=== PATIENT | female | born 1960 | race Caucasian/White ===

== ENCOUNTER 2018-03-15 10:04 | Outpatient (RCR) | payer BC ==
[~2018-03-15] VITALS: Ht 165.1 cm; Wt 80.0 kg
[2018-03-15] VITALS (7 sets, daily range): BP systolic 129–1149; BP diastolic 68–83; PULSE 72–87; TEMP 97.4–97.6
[~2018-03-15 10:04] MED LIST: CALTRATE-600 W600 MG PO; D3-55000 IU; MAGNESIUM250 M1 PO; PREMARIN0.625 MG PO; RITE AID BIO2500 MCG; URSO250 MG PO; XANAX 0.5MG0.5 MG PO
[2018-03-15 15:22] LABS: HEMATOCRIT 25.1 % (37.0-47.0); HEMOGLOBIN 8.3 g/dl (12.5-16.0)
[2018-03-15 16:04] LABS: HEMATOCRIT 25.2 % (37.0-47.0); HEMOGLOBIN 8.4 g/dl (12.5-16.0)
== END 2018-03-15 16:00 | disposition home or self-care (01) ==
LOC: MEDICAL 10:47 → EUO 16:00
PROVIDERS: Family Medicine
DX: C67.7 Malignant neoplasm of urachus (principal); D63.0 Anemia in neoplastic disease; Z92.21 Personal history of antineoplastic chemotherapy; Z45.2 Encounter for adjustment and management of vascular access device; Z95.828 Presence of other vascular implants and grafts
CPT/HCPCS: OP; J1644; J7050; P9016

== ENCOUNTER 2018-05-07 10:00 | Outpatient (RCR) | payer BC ==
[2018-04-08] VITALS (9 sets, daily range): BP systolic 138–154; BP diastolic 77–95; PULSE 68–81; TEMP 97.3–98.3
[2018-04-08 15:28] LABS: MEAN CELL VOLUME 95 fl (80.0-100.0); MEAN CORPUSCULAR HGB CONC 35 g/dl (33.0-37.0); PLATELET COUNT 52 K/mm3 (130-400); RED BLOOD COUNT 2.36 M/mm3 (4.10-5.30); REDCELL DISTRIBUTION WIDTH-CV 16.8 % (11.5-14.5)
[2018-04-08 15:31] LABS: ALBUMIN 3.1 gm/dL (3.5-5.0); BILIRUBIN,TOTAL 0.9 mg/dL (0.0-1.0); CALCIUM 8.6 mg/dL (8.4-10.2); CREATININE, serum 1.14 mg/dL (0.52-1.25); POTASSIUM 4.3 mmol/L (3.4-5.0); TOTAL PROTEIN 6.3 gm/dL (6.4-8.2)
[2018-04-08 15:36] LABS: HEMATOCRIT 22.5 % (37.0-47.0); HEMOGLOBIN 7.9 g/dl (12.5-16.0); MEAN CORPUSCULAR HEMOGLOBIN 33 pg (27.0-31.0)
[~2018-05-07] VITALS: Ht 165.1 cm; Wt 76.9 kg
[2018-05-07] VITALS (7 sets, daily range): BP systolic 151–164; BP diastolic 77–86; PULSE 68–86; TEMP 97.6–98.1
[~2018-05-07 10:00] MED LIST changes: +D3-5050000 IU PO; -D3-55000 IU; +MICARDIS20 MG PO; +TAGAMET400 MG PO; +XELODA150 MG PO
[2018-06-05] MEDS ORDERED: NORCO 325 MG-51 TAB PO (15:11)
== END 2018-06-05 10:25 | disposition still patient (30) ==
LOC: EUO 10:00
PROVIDERS: Family Medicine
DX: C67.7 Malignant neoplasm of urachus (principal); C78.6 Secondary malignant neoplasm of retroperitoneum and peritoneum; D64.81 Anemia due to antineoplastic chemotherapy
CPT/HCPCS: J1644; J7050; P9016

== ENCOUNTER 2018-06-05 12:29 | Outpatient (RCR) | payer BC ==
[2018-06-05] VITALS (10 sets, daily range): BP systolic 152–196; BP diastolic 90–101; PULSE 63–77; TEMP 97.6–98.5
[2018-06-05] MEDS ORDERED: NORCO 325 MG-51 TAB PO (15:11)
== END 2018-06-05 19:25 ==
LOC: EUO 12:29
DX: C67.7 Malignant neoplasm of urachus (principal); C78.6 Secondary malignant neoplasm of retroperitoneum and peritoneum; D64.81 Anemia due to antineoplastic chemotherapy
CPT/HCPCS: J1644; J7050; P9016

== ENCOUNTER → 2018-06-10 | Outpatient (CLI) | payer BC ==
[~2018-06-10] MED LIST changes: +NORCO 325 MG-51 TAB PO
== END ==
LOC: COL.VAS 12:03
DX: I34.0 Nonrheumatic mitral (valve) insufficiency (principal)

== ENCOUNTER 2018-06-23 08:06 | Outpatient (RCR) | payer BC ==
[2018-06-23] VITALS (10 sets, daily range): BP systolic 136–169; BP diastolic 80–99; PULSE 68–88; TEMP 96.7–98
[~2018-06-23] VITALS: Ht 165.1 cm; Wt 75.1 kg
[2018-06-23] MEDS ORDERED: blood pressure PO (08:45)
== END 2018-06-23 14:05 | disposition home or self-care (01) ==
LOC: EUO 08:06
DX: C67.7 Malignant neoplasm of urachus (principal); C78.6 Secondary malignant neoplasm of retroperitoneum and peritoneum; D64.81 Anemia due to antineoplastic chemotherapy
CPT/HCPCS: J1644; J7050; P9016

== ENCOUNTER → 2018-07-17 | Outpatient (CLI) | payer BC ==
[~2018-07-17] MED LIST changes: +blood pressure PO
== END ==
LOC: COL.RAD 10:11
DX: C78.6 Secondary malignant neoplasm of retroperitoneum and peritoneum (principal); C79.51 Secondary malignant neoplasm of bone; M47.816 Spondylosis without myelopathy or radiculopathy, lumbar region
CPT/HCPCS: A9585

== ENCOUNTER 2018-07-22 17:42 | Observation (INO) | payer BC ==
[~2018-07-22] VITALS: Ht 167.6 cm; Wt 61.3 kg
[2018-07-22 17:54] VITALS: BP 136/75; PULSE 109; TEMP 98
[2018-07-22] MEDS ORDERED: TYLENOL 500MG500 MG PO (19:10)
[2018-07-22] MEDS ORDERED: COMPAZINE 110 MG/TAB PO (19:11)
[2018-07-22] MEDS ORDERED: NORVASC 5MG5 MG/TAB PO (19:14)
[2018-07-22] MEDS ORDERED: MICARDIS40 MG PO (19:15)
[2018-07-22] MEDS ORDERED: OXYCODONE H5 MG/5 ML PO (19:16)
[2018-07-22 21:09] VITALS: BP 136/84; PULSE 106; TEMP 98.9
--- NOTE | 2018-07-22 21:15 | NUR ---
Shift assessment complete. States, 4/10 pain in left knee, with limited ROM (not new problem per pt). Prn tylenol given. Patient c/o N & V, prn antiemetic given per pt request. Port-a-cath in right chest accessed with 19g, 1in power needle, using sterile technique. Biopatch placed under dressing, needle secured with steri-strips/gauze, and covered with an occlusive dressing. Blood return noted, labs drawn per order, flushed per protocol, and infusing NS. Patient tolerated well. Denies further needs at this time. Will continue to monitor.
[2018-07-22 21:51] LABS: BASO % 0.2 % (0.0-2.0); EOS % 0.7 % (0-4.0); GRAN # 2.7 (1.4-6.5); GRAN % 58.9 % (42.2-75.2); LYMPH % 21.1 % (20.0-51.0); MEAN CELL VOLUME 97 fl (80.0-100.0); MEAN CORPUSCULAR HGB CONC 34 g/dl (33.0-37.0); MEAN PLATELET VOLUME 8.8 fl (7.4-10.4); MONO # 0.9 (0.1-0.6); MONO % 18.7 % (1.7-9.3); PLATELET COUNT 341 K/mm3 (130-400); RED BLOOD COUNT 2.57 M/mm3 (4.10-5.30); REDCELL DISTRIBUTION WIDTH-CV 17.5 % (11.5-14.5)
[2018-07-22 21:52] LABS: HEMATOCRIT 24.9 % (37.0-47.0); HEMOGLOBIN 8.5 g/dl (12.5-16.0); MEAN CORPUSCULAR HEMOGLOBIN 33 pg (27.0-31.0)
[2018-07-22 21:58] LABS: PROTHROMBIN TIME 11.8 SECONDS (9.7-12.8)
[2018-07-22 22:00] LABS: ALBUMIN 3.4 gm/dL (3.5-5.0); BILIRUBIN,TOTAL 1.1 mg/dL (0.0-1.0); CALCIUM 8.8 mg/dL (8.4-10.2); CREATININE, serum 1.59 (0.52-1.25); POTASSIUM 4.2 mmol/L (3.4-5.0); TOTAL PROTEIN 7.3 gm/dL (6.4-8.2)
[2018-07-22 23:55] VITALS: BP 110/49; BP 144/83; PULSE 114; PULSE 81; TEMP 98.8; TEMP 98.9
[2018-07-23] VITALS (11 sets, daily range): BP systolic 126–170; BP diastolic 54–81; PULSE 70–122; TEMP 97.6–99.2
--- NOTE | 2018-07-23 05:44 | NUR ---
Patient in bed, sleeping. Appears comfortable. Will continue to monitor.
--- NOTE | 2018-07-23 06:55 | NUR ---
Pt resting in bed eyes closed, no facial grimmace observed. Pt AAOx4 after entering room. Pt educated on CT scan, updated pt on report from night-shift RN that PEG tube placement most likley will not occur today d/t coagulation labs. Questions invited and answered. Call light in reach. IV fluids infusing.
[2018-07-23 08:50] LABS: MUCOUS Present /lpf; PH 5 (5-8); SQUAMOUS EPITHELIAL 0-2 /hpf; URINE APPEARANCE Clear; URINE BACTERIA None Seen /hpf; URINE BILIRUBIN Negative (NEGATIVE); URINE BLOOD Negative (NEGATIVE); URINE COLOR Yellow; URINE GLUCOSE Negative (NEGATIVE); URINE KETONE 1+ (NEGATIVE); URINE LEUKOCYTE ESTERASE Negative (NEGATIVE); URINE NITRATE Negative (NEGATIVE); URINE PROTEIN(semi-quant) Negative (NEGATIVE); URINE UROBILINOGEN Negative (NEGATIVE)
--- NOTE | 2018-07-23 09:02 | NUR ---
MD Anita making rounds with team. Plan of care provided to pt, all questions answered. Plan for CT scan, FFP administration, lab recheck
[2018-07-23 09:50] LABS: COLLECTION METHOD CLEAN CATCH
--- NOTE | 2018-07-23 10:10 | NUR ---
Initial visit; Patient thanked Paste Mixing Supervisor for looking in on her and offering God's blessings and prayer. Paste Mixing Supervisor will continue to look in on Bradley.
--- NOTE | 2018-07-23 10:15 | NUR ---
SW attended clinical rounds to discuss discharge planning. Patient lives independently at home with her . Patient's PCP is Dr Valenzuela [facility] Patient does not report any DME or home health services used. Patient does not have a DPOA and she is not interested in obtaining one at this time. SW does not anticipate any discharge needs.
--- NOTE | 2018-07-23 12:48 | NUR ---
FFP complete, Hospitalist team notified, repeat labs ordered, drawn and sent off to lab. Pt transfered with standby assistance from bed to chair without difficulty. and daughter at bedside visiting. Pt stating "I am not sure about getting this feeding tube placed. It's not a done deal for me - Im not 100% agreeing to surgery for placement". VANDANA Carter from hospitalist notifed pt wanting to speak with doctors more about options. Pt educated that procedure will not be completed if PTT lab is not within range for MD Simeon.
[2018-07-23 12:51] LABS: BASO % 0.2 % (0.0-2.0); EOS % 0.7 % (0-4.0); GRAN # 3.1 (1.4-6.5); GRAN % 69.5 % (42.2-75.2); LYMPH # 0.7 (1.2-3.4); MEAN CELL VOLUME 100 fl (80.0-100.0); MEAN CORPUSCULAR HGB CONC 34 g/dl (33.0-37.0); MEAN PLATELET VOLUME 8.1 fl (7.4-10.4); MONO # 0.6 (0.1-0.6); MONO % 13.1 % (1.7-9.3); RED BLOOD COUNT 2.24 M/mm3 (4.10-5.30); REDCELL DISTRIBUTION WIDTH-CV 17.4 % (11.5-14.5)
[2018-07-23 12:52] LABS: HEMATOCRIT 22.4 % (37.0-47.0); HEMOGLOBIN 7.5 g/dl (12.5-16.0); MEAN CORPUSCULAR HEMOGLOBIN 33 pg (27.0-31.0); PLATELET COUNT 230 K/mm3 (130-400)
[2018-07-23 12:54] LABS: PROTHROMBIN TIME 11.5 SECONDS (9.7-12.8)
[2018-07-23 12:56] LABS: PARTIAL THROMBOPLASTIN TIME 28.3 SECONDS (26.0-37.0)
[2018-07-23 12:58] LABS: ALBUMIN 3.2 gm/dL (3.5-5.0); BILIRUBIN,TOTAL 0.7 mg/dL (0.0-1.0); CALCIUM 8.4 mg/dL (8.4-10.2); CREATININE, serum 1.13 (0.52-1.25); POTASSIUM 4.1 mmol/L (3.4-5.0); TOTAL PROTEIN 6.8 gm/dL (6.4-8.2)
--- NOTE | 2018-07-23 15:00 | NUR ---
MD Simeon here speaking with pt. Pt consented for operation, all questions answered.
--- NOTE | 2018-07-23 15:30 | NUR ---
Pt off unit for surgery
--- NOTE | 2018-07-23 16:35 | NUR ---
Pt arrived back to room from PACU. Pt AAOx4. Pt did experience vomiting while in PACU. Oral rinse and self oral care completed.
--- NOTE | 2018-07-23 20:00 | NUR ---
BP ELEVATED- 170/81. JOSSELIN HOYOS NOTIFIED. NO NEW ORDERS.
--- NOTE | 2018-07-23 20:30 | NUR ---
PT RESTING IN BED A+OX4. REPORTS MINIMAL PAIN, NO NEEDS FOR INTERVENTION AT THIS TIME. PORTACATH FLUSHES WELL- BLOOD RETUN NOTED. IV FLUIDS RUNNING AT ORDERED RATE. PEG TUBE CLAMPED- DRESSING: SLIGHT DRAINAGE NOTED. NO NEEDS AT THIS TIME. CALL LIGHT IN REACH.
[2018-07-24] VITALS (9 sets, daily range): BP systolic 135–153; BP diastolic 70–79; PULSE 88–107; TEMP 97.7–99.4
--- NOTE | 2018-07-24 06:13 | NUR ---
PT HAD AN UNEVENTFUL NIGHT. C/O 4/10 PAIN IN LEFT LEG. PRN MEDS GIVEN. PORTACATH FLUSHES, WELL BLOOD RETURN NOTED. SLIGHT REDNESS ON SACREAL REGION- BARRIER CREAM APPLIED. PT GAIT SLOW BUT STEADY AND STABLE. PEG TUBE DRESSING HAS SLIGHT DRAINAGE BUT HAS NOT INCREASED DURING SHIFT. NO NEEDS AT THIS TIME. CALL LIGHT IN REACH
--- NOTE | 2018-07-24 06:59 | NUR ---
REPORT GIVEN TO PK STARKEY. PT REPORTS NO NEEDS
[2018-07-24 07:14] LABS: BASO % 0.3 % (0.0-2.0); EOS % 0.3 % (0-4.0); GRAN % 69.5 % (42.2-75.2); LYMPH # 1.2 (1.2-3.4); LYMPH % 16.9 % (20.0-51.0); MEAN CELL VOLUME 101 fl (80.0-100.0); MEAN CORPUSCULAR HGB CONC 33 g/dl (33.0-37.0); MEAN PLATELET VOLUME 8.8 fl (7.4-10.4); MONO # 0.9 (0.1-0.6); MONO % 12.6 % (1.7-9.3); PLATELET COUNT 218 K/mm3 (130-400); RED BLOOD COUNT 2.12 M/mm3 (4.10-5.30); REDCELL DISTRIBUTION WIDTH-CV 17.3 % (11.5-14.5)
[2018-07-24 07:17] LABS: HEMATOCRIT 21.4 % (37.0-47.0); MEAN CORPUSCULAR HEMOGLOBIN 33 pg (27.0-31.0)
[2018-07-24 07:31] LABS: ALBUMIN 2.7 gm/dL (3.5-5.0); BILIRUBIN,TOTAL 0.5 mg/dL (0.0-1.0); CALCIUM 7.8 mg/dL (8.4-10.2); CREATININE, serum 0.95 (0.52-1.25); MAGNESIUM 2.1 mg/dL (1.6-2.3); POTASSIUM 3.7 mmol/L (3.4-5.0); TOTAL PROTEIN 5.9 gm/dL (6.4-8.2)
--- NOTE | 2018-07-24 08:00 | NUR ---
Patient in bed resting. Alert and oriented x 3. Shift assessment complete. Patient up to restroom, stand by assist. Gtube to left quadrent with minimal drainge present on dressing. Denies pain at this time. Patient tolerateing ice chips. Denies further needs at this time.
--- NOTE | 2018-07-24 11:46 | NUR ---
Blood transfusion initated, this nurse stayed with patient initial 15 minutes of transfusion. VSS. Denies adverse reactions. Denies further needs at this time.
--- NOTE | 2018-07-24 13:34 | NUR ---
Follow-up visit; Patient thanked Electric Scoop Operator for looking in on her again today to see how she is doing. Patient states she will be discharged soon. Electric Scoop Operator offered God's blessings.
--- NOTE | 2018-07-24 14:20 | NUR ---
Blood transfusion completed. Educated patient on how to drain peg tube.
[2018-07-24] MEDS ORDERED: OXYCODONE H5 MG/5 ML PO (16:19)
--- NOTE | 2018-07-24 18:45 | NUR ---
Discharge instructions provided to patient. Educated on placing PEG tube to dependent drainage. Educated on signs and symptoms of infection and when to call providers office. Patient educated on how to clean out drainage bag. Port to right chest discontinued, Area cleaned with clorahexidine swabs prior to retracting needle. Pressure held to area, gauze and tegaderm dressing in place. Tolerated procedure well. Patient up to restroom. Denies pain or further needs at this time. Patient out by wheelchair with surgical staff.
== END 2018-07-24 18:50 | disposition home or self-care (01) ==
LOC: SURG 17:42
PROVIDERS: Nurse Practitioner Family; Physician Assistant; ADMIT Internal Medicine
DX: C78.6 Secondary malignant neoplasm of retroperitoneum and peritoneum (principal); K56.699 Other intestinal obstruction unspecified as to partial versus complete obstruction; K59.00 Constipation, unspecified; Z92.21 Personal history of antineoplastic chemotherapy; Z85.51 Personal history of malignant neoplasm of bladder; Z90.49 Acquired absence of other specified parts of digestive tract; I12.9 Hypertensive chronic kidney disease with stage 1 through stage 4 chronic kidney disease, or unspecified chronic kidney disease; N18.9 Chronic kidney disease, unspecified; N17.9 Acute kidney failure, unspecified; Z90.710 Acquired absence of both cervix and uterus; F41.9 Anxiety disorder, unspecified; Z88.2 Allergy status to sulfonamides; Z88.1 Allergy status to other antibiotic agents; Z91.040 Latex allergy status; D53.9 Nutritional anemia, unspecified
CPT/HCPCS: G0378; J1170; J2550; J2704; J3010; J7030; P9016

== ENCOUNTER 2018-08-19 23:09 | Inpatient (IN) | payer BC ==
[~2018-08-19] VITALS: Ht 165.1 cm; Wt 63.5 kg
[~2018-08-19 23:09] MED LIST changes: +COMPAZINE 110 MG/TAB PO; +MICARDIS40 MG PO; +NORVASC 5MG5 MG/TAB PO; +OXYCODONE H5 MG/5 ML PO; +TYLENOL 500MG500 MG PO
[2018-08-19 23:44] LABS: BASO % 0.2 % (0.0-2.0); EOS % 0.1 % (0-4.0); GRAN # 9.2 (1.4-6.5); GRAN % 83.2 % (42.2-75.2); HEMOGLOBIN 10.4 g/dl (12.5-16.0); LYMPH # 1.1 (1.2-3.4); LYMPH % 9.8 % (20.0-51.0); MEAN CELL VOLUME 98 fl (80.0-100.0); MEAN CORPUSCULAR HEMOGLOBIN 33 pg (27.0-31.0); MEAN CORPUSCULAR HGB CONC 34 g/dl (33.0-37.0); MEAN PLATELET VOLUME 9.2 fl (7.4-10.4); MONO # 0.7 (0.1-0.6); MONO % 6.2 % (1.7-9.3); PLATELET COUNT 436 K/mm3 (130-400); RED BLOOD COUNT 3.18 M/mm3 (4.10-5.30); REDCELL DISTRIBUTION WIDTH-CV 14.8 % (11.5-14.5)
[2018-08-19 23:55] LABS: COLLECTION METHOD CLEAN CATCH
[2018-08-19 23:57] LABS: ALBUMIN 3.1 gm/dL (3.5-5.0); BILIRUBIN,TOTAL 0.9 mg/dL (0.0-1.0); C-REACTIVE PROTEIN 3.2 mg/dL (0.0-0.9); CALCIUM 8.3 mg/dL (8.4-10.2); CREATININE, serum 2.2 (0.52-1.25); POTASSIUM 3.3 mmol/L (3.4-5.0); TOTAL PROTEIN 6.9 gm/dL (6.4-8.2)
[2018-08-20] VITALS (1088 sets, daily range): BP systolic 108–131; BP diastolic 71–83; PULSE 104–112; TEMP 97.4–98.3; O2SAT 68–100
[2018-08-20 00:02] LABS: AMORPHOUS CRYSTAL Present /uL; PH 5 (5-8); SQUAMOUS EPITHELIAL 0-2 /hpf; URINE APPEARANCE Hazy; URINE BACTERIA Rare /hpf; URINE BILIRUBIN Negative (NEGATIVE); URINE BLOOD 1+ (NEGATIVE); URINE COLOR Yellow; URINE GLUCOSE Negative (NEGATIVE); URINE KETONE Negative (NEGATIVE); URINE LEUKOCYTE ESTERASE Negative (NEGATIVE); URINE NITRATE Negative (NEGATIVE); URINE PROTEIN(semi-quant) Negative (NEGATIVE); URINE RBC 0-2 /hpf; URINE UROBILINOGEN Negative (NEGATIVE)
[2018-08-20 00:12] LABS: TROPONIN-I 0.049 ng/mL (0.000-0.035)
--- NOTE | 2018-08-20 03:45 | NUR ---
Report received from Keisha in ED.
--- NOTE | 2018-08-20 04:25 | NUR ---
Pt arrived via stretcher to ICU03 X1 staff member. Pt reported feeling to weak to move to ICU bed from stretcher with beds put next to eachother. Pt was transfered X2 nurses. Pt reported feeling abdominal pain when laying down although relieved with bed positioned in fowlers. Pt A&O at this time. Denies any belongings besides clothing which was placed in cabinet in pts room. 25mcg Fentanyl patch located to pts posterior right shoulder. Head of hair noted to be thinning and brown in color. PEG tube hooked up to a portible suction canister although not applied with any pressure with active drainage noted. Abdomen is firm to the touch around umbilicus.
[2018-08-20 06:34] LABS: BASO % 0.1 % (0.0-2.0); EOS % 0.1 % (0-4.0); GRAN # 6.7 (1.4-6.5); LYMPH # 0.9 (1.2-3.4); MEAN CELL VOLUME 98 fl (80.0-100.0); MEAN CORPUSCULAR HGB CONC 33 g/dl (33.0-37.0); MEAN PLATELET VOLUME 8.8 fl (7.4-10.4); MONO # 0.6 (0.1-0.6); MONO % 7.4 % (1.7-9.3); RED BLOOD COUNT 2.91 M/mm3 (4.10-5.30); REDCELL DISTRIBUTION WIDTH-CV 15.3 % (11.5-14.5)
[2018-08-20 06:44] LABS: CALCIUM 7.5 mg/dL (8.4-10.2); CREATININE, serum 1.6 (0.52-1.25); POTASSIUM 3.3 mmol/L (3.4-5.0)
[2018-08-20 06:49] LABS: HEMATOCRIT 28.5 % (37.0-47.0); HEMOGLOBIN 9.5 g/dl (12.5-16.0); MEAN CORPUSCULAR HEMOGLOBIN 33 pg (27.0-31.0); PLATELET COUNT 265 K/mm3 (130-400)
[2018-08-20 06:58] LABS: TROPONIN-I 6 HR POST INITIAL 0.07 ng/mL (0.000-0.034)
--- NOTE | 2018-08-20 07:10 | NUR ---
Report provided to Andres WHITTINGTON. Pt resting in bed at this time.
--- NOTE | 2018-08-20 11:04 | NUR ---
SW attended clinical rounds to discuss discharge planning. Patient lives independently at home with her . Patient's PCP is Dr Valenzuela and she obtains prescriptions from [facility]. Patient does have a peg tube but it's not used for nutrition. Patient does not have home health services. Patient does not have a DPOA and she is not interested in obtaining one at this time. Patient would like to speak with her before completing a DPOA-HC. SW will continue to follow and assist with any discharge needs.
--- NOTE | 2018-08-20 13:41 | NUR ---
Pt resting in bed, home n/v med reordered and admin, Complete bed bath and linen change given d/t n/v, pt c/o pain in lower abd 04/27 and refused and additional pain meds. ID-Dr. Nielsen consulted and RN called, but only able to get voicemail, voicemail left @1243 08/20/18. Palliative Care consult was called in, Latricia RN not available at this time, covering RN April was called and consult refered to Top Former @ 1244 08/20/18. Top Former called and voicemail was left on answering service @1243 08/20/18. Will continue to asess pt status and update providers as needed.
--- NOTE | 2018-08-20 16:04 | NUR ---
Was able to speak to Dr. Nielsen and update him on pt status, orders recieved. Dr. Howell was called and upated re K-3.3 and N/V, orders reveive will continue to monitor.
--- NOTE | 2018-08-20 20:00 | NUR ---
Old dressing removed from coccyx wounds. Light yellow to box drainage noted. Upper coccyx has a reddened intact area. Right medial buttock has a dime sized shallow open uler with a yellowish wound bed. Left medial buttock has a pea sized shallow ulcer with a pink wound bed. New bandage applied to open areas. Patient able to reposition herself in bed. Reminded of importance repositioning in bed to prevent worsening of sores.
[2018-08-21] VITALS (905 sets, daily range): BP systolic 120–143; BP diastolic 78–97; PULSE 96–108; TEMP 97.5–98.6; O2SAT 87–100
[2018-08-21 05:53] LABS: BASO % 0.2 % (0.0-2.0); EOS % 0.6 % (0-4.0); GRAN # 4.6 (1.4-6.5); GRAN % 74.2 % (42.2-75.2); MEAN CELL VOLUME 100 fl (80.0-100.0); MEAN CORPUSCULAR HGB CONC 32 g/dl (33.0-37.0); MEAN PLATELET VOLUME 8.6 fl (7.4-10.4); MONO # 0.5 (0.1-0.6); MONO % 8.7 % (1.7-9.3); PLATELET COUNT 246 K/mm3 (130-400); REDCELL DISTRIBUTION WIDTH-CV 15.7 % (11.5-14.5)
[2018-08-21 05:55] LABS: HEMATOCRIT 26.9 % (37.0-47.0); HEMOGLOBIN 8.7 g/dl (12.5-16.0); MEAN CORPUSCULAR HEMOGLOBIN 32 pg (27.0-31.0)
[2018-08-21 06:09] LABS: CALCIUM 7.7 mg/dL (8.4-10.2); CREATININE, serum 1.29 (0.52-1.25); POTASSIUM 3.5 mmol/L (3.4-5.0)
[2018-08-21 06:16] LABS: TROPONIN-I 0.027 ng/mL (0.000-0.035)
--- NOTE | 2018-08-21 07:36 | NUR ---
Report given to PK Evans. Patient care transfered.
--- NOTE | 2018-08-21 08:00 | NUR ---
Shift assessment complete at this time. Plan of care reviewed at bedside with patient. Additional time taken to address any other needs or concerns. Vitals stable at this time. Reports mild abdominal discomfort and wanting to discuss with attending during rounds for further interventional measures. Denies any other complaints or concerns. Bed in low position, call light within reach. Will continue to monitor.
--- NOTE | 2018-08-21 12:00 | NUR ---
Pt resting comfortably in bed. Reports abdominal pain as tolerable and denies any other discomfort. Pt reports that abdominal discomfort is improving steadily after administration of GI cocktail. Vitals stable at this time. Bed in low position, call light within reach, will continue to monitor.
--- NOTE | 2018-08-21 15:45 | NUR ---
Pt resting in bed. Reports "rolling-wave like nausea pain in abdomen" at 4/10 severity. Will administer PRN phenergan and evaluate effectiveness. Vitals stable. Pt denies any other discomforts. Bed in low position, call light within reach, will continue to monitor.
--- NOTE | 2018-08-21 17:00 | NUR ---
Pt arrived to floor at this time via bed with ICU staff. Family at bedside. Contact precautions in place for patient CDIFF positive from ER. Pt resting in bed with PEG to LIS draining dark green bilious fluid. IVF to PAC to RUC. Zosyn to LFA. Denies needs, will continue to monitor.
--- NOTE | 2018-08-21 18:13 | NUR ---
Pt doing well, denies needs, will give bedside shift report to nightshift nurse who will resume care.
--- NOTE | 2018-08-21 19:15 | NUR ---
SHIFT REPORT RECEIVED FROM MARJ WHITTINGTON. PT RESTING IN BED WITH HOB ELEVATED. LR AT 75CC/HR INFUSING TO MEREDITH CATH W/O DIIFICULTY. ZOSYN CONTINUE TO LT ARM INT. PEG SUCTION BACK ON TO LIS 45MIN AFTER MEDS GIVEN. NO NAUSEA. PT REQUESTED PEPSI. LUKAS WELL. CALL LIGHT IN REACH. NO OTHER NEEDS AT THIS TIME.
[2018-08-22] VITALS (7 sets, daily range): BP systolic 115–137; BP diastolic 73–86; PULSE 73–107; TEMP 97.7–99.3
--- NOTE | 2018-08-22 03:18 | NUR ---
ASSISTED TO BSC. VOIDED CLEAR YELLOW URINE. MEPILEX TO COOCYX PEELING OFF. REPLACED. STAGE II BILAT INNER COOCYCX. GRANULATION NOTED. ATTEMPTED TO PLACE NEW SCD'S ON PT ORDERED. PT FLATLY REFUSED.
[2018-08-22 06:07] LABS: BASO % 0.2 % (0.0-2.0); EOS # 0.1 (0.0-0.7); EOS % 2.6 % (0-4.0); GRAN # 2.8 (1.4-6.5); GRAN % 56.9 % (42.2-75.2); LYMPH # 1.5 (1.2-3.4); LYMPH % 30.2 % (20.0-51.0); MEAN CELL VOLUME 102 fl (80.0-100.0); MEAN CORPUSCULAR HGB CONC 32 g/dl (33.0-37.0); MONO # 0.5 (0.1-0.6); MONO % 9.5 % (1.7-9.3); PLATELET COUNT 219 K/mm3 (130-400); RED BLOOD COUNT 2.37 M/mm3 (4.10-5.30); REDCELL DISTRIBUTION WIDTH-CV 15.3 % (11.5-14.5)
[2018-08-22 06:20] LABS: ALBUMIN 2.3 gm/dL (3.5-5.0); BILIRUBIN,TOTAL 0.3 mg/dL (0.0-1.0); CALCIUM 7.8 mg/dL (8.4-10.2); CREATININE, serum 0.9 (0.52-1.25); POTASSIUM 3.7 mmol/L (3.4-5.0); TOTAL PROTEIN 5.3 gm/dL (6.4-8.2)
[2018-08-22 06:30] LABS: HEMATOCRIT 24.1 % (37.0-47.0); HEMOGLOBIN 7.7 g/dl (12.5-16.0); MEAN CORPUSCULAR HEMOGLOBIN 32 pg (27.0-31.0)
--- NOTE | 2018-08-22 06:34 | NUR ---
NEED CLARIFICATION ON PTS FENTANNYL PATCH. HAS A HOME PATCH ON HER BACK. 25MCG. NEEDS CHANGED TONIGHT. WILL PASS THIS INFO TO DAYSHIFT NURSE.
--- NOTE | 2018-08-22 10:15 | NUR ---
Patient alert and oriented, answers questions appropriately. See assessment. Abdomen round and firm. PEG to to LIS, moderate amount of brown drainage noted. Bowel sounds hyperactive. +Flatus. Reddened area on coccyx, mepilex in place. No c/o pain or discomfort.
--- NOTE | 2018-08-22 13:21 | NUR ---
BROOK followed-up with the patient to inquire about DPOA for HC. The pt reports she is still thinking about it. BROOK will continue to follow.
--- NOTE | 2018-08-23 03:23 | NUR ---
Patient resting well this night. Called about 0230 and requested pain medication for her left leg. Tylenol administered. Suction to PEG tube shut off and restarted about 30-45 minutes later. Patient stated her stomach was starting to hurt d/t suction being turned off. Patient had a snack of ice cream earlier this evening. Utilizes one assist to the commode. Patient has verbalized wanting to go home. Denies any further needs. Will continue to monitor.
[2018-08-23 04:21] VITALS: BP 118/79; PULSE 76; TEMP 98.6
[2018-08-23 07:39] LABS: BASO % 0.2 % (0.0-2.0); EOS # 0.2 (0.0-0.7); EOS % 3.2 % (0-4.0); GRAN # 2.7 (1.4-6.5); GRAN % 56.5 % (42.2-75.2); HEMATOCRIT 23.8 % (37.0-47.0); HEMOGLOBIN 7.8 g/dl (12.5-16.0); LYMPH # 1.5 (1.2-3.4); LYMPH % 32.3 % (20.0-51.0); MEAN CELL VOLUME 99 fl (80.0-100.0); MEAN CORPUSCULAR HEMOGLOBIN 33 pg (27.0-31.0); MEAN CORPUSCULAR HGB CONC 33 g/dl (33.0-37.0); MONO # 0.3 (0.1-0.6); MONO % 7.2 % (1.7-9.3); PLATELET COUNT 191 K/mm3 (130-400)
[2018-08-23 07:46] LABS: CALCIUM 7.8 mg/dL (8.4-10.2); CREATININE, serum 0.74 (0.52-1.25); POTASSIUM 3.9 mmol/L (3.4-5.0)
[2018-08-23 08:15] VITALS: BP 123/79; PULSE 77; TEMP 98.5
--- NOTE | 2018-08-23 09:00 | NUR ---
Patient alert and oriented, answers questions appropriately. See assessment. Abdomen rounded, bowel sounds hyperactive x4 quads. PEG to in place to RUQ, connected to ortiz bag to dependent drainage. Area around PEG site with no issues noted, dressing changed. PAC to right chest wall accessed, blood return noted. C/O mild abdominal pain and headache. No other c/o at this time.
[2018-08-23 12:34] VITALS: BP 128/84; PULSE 79; TEMP 97.7
[2018-08-23 16:55] VITALS: BP 127/82; PULSE 79; TEMP 98.5
[2018-08-23 19:37] VITALS: BP 121/77; PULSE 87; TEMP 97.3
[2018-08-24 00:06] VITALS: BP 122/77; PULSE 81; TEMP 97.4
--- NOTE | 2018-08-24 01:31 | NUR ---
Patient has rested well tonight. PEG tube noted to be to dependent drainage to urinary bag, but no output noted. Aspiratedd 150ml of gastric contents and then drainage appeared to be flowing more readily into the bag. Patient noted to have a small soft formed bowel movement this shift as well. PRN Tylenol given for left leg pain. Effective. Will continue to monitor.
[2018-08-24 03:25] VITALS: BP 125/83; PULSE 81; TEMP 97.5
--- NOTE | 2018-08-24 06:32 | NUR ---
Patient has rested well throughout the night. Pain managed. Minimal drainage in ortiz bag from PEG tube. Patient does complain of fullness to lower abdomen. Will report to day shift.
[2018-08-24 07:11] LABS: ALANINE AMINOTRANSFERASE 18 U/L (9-52); ALBUMIN 2.2 gm/dL (3.5-5.0); ALKALINE PHOSPHATASE 76 U/L (50-136); ANION GAP 3 mmol/L (7-16); AST,SGOT 31 U/L (15-37); BILIRUBIN,TOTAL < 0.1 mg/dL (0.0-1.0); BLOOD UREA NITROGEN 16 mg/dL (7-17); CALCIUM 7.6 mg/dL (8.4-10.2); CARBON DIOXIDE 29 mmol/L (22-30); CHLORIDE 106 mmol/L (98-107); CREATININE, serum 0.64 (0.52-1.25); GLUCOSE 77 mg/dL (74-106); SODIUM 139 mmol/L (137-145); TOTAL PROTEIN 5.3 gm/dL (6.4-8.2)
[2018-08-24 07:16] LABS: BASO % 0.4 % (0.0-2.0); EOS # 0.2 (0.0-0.7); GRAN # 2.7 (1.4-6.5); GRAN % 54.3 % (42.2-75.2); LYMPH # 1.7 (1.2-3.4); LYMPH % 34.7 % (20.0-51.0); MEAN CELL VOLUME 101 fl (80.0-100.0); MEAN CORPUSCULAR HGB CONC 33 g/dl (33.0-37.0); MEAN PLATELET VOLUME 8.9 fl (7.4-10.4); MONO # 0.4 (0.1-0.6); PLATELET COUNT 184 K/mm3 (130-400); RED BLOOD COUNT 2.37 M/mm3 (4.10-5.30); REDCELL DISTRIBUTION WIDTH-CV 14.9 % (11.5-14.5)
[2018-08-24 07:29] LABS: HEMATOCRIT 23.9 % (37.0-47.0); HEMOGLOBIN 7.9 g/dl (12.5-16.0); MEAN CORPUSCULAR HEMOGLOBIN 33 pg (27.0-31.0)
[2018-08-24 07:58] VITALS: BP 124/80; PULSE 92; TEMP 98.6
--- NOTE | 2018-08-24 08:00 | NUR ---
Patient resting in bed at this time. Patient is alert and oriented, answers questions appropriately. PEG tube to dependent drainage, a moderate amount of green drainage in bag. Pressure ulcer to coccyx is dressed with mepilex. Patient denies pain or nausea at this time, call light within reach.
[2018-08-24] MEDS ORDERED: CIPRO 500MG TA500 MG PO (10:20)
[2018-08-24] MEDS ORDERED: ASPIRIN 81M81 MG/TA2 PO (10:21)
[2018-08-24] MEDS ORDERED: TOPROL XL 25MG25 MG PO (10:22)
[2018-08-24 11:23] VITALS: BP 129/91; PULSE 86; TEMP 98.4
--- NOTE | 2018-08-24 16:10 | NUR ---
Patient given discharge teaching regarding peg tube to drainage, extra bags, how to change bags, how and when to clamp tube, and how to aspirate/irrigate tube. Patient given instructions on how to dress pressure wound on coccyx, extra dressings, and when to change dressing. Patient given names and phone numbers of offices to make follow up/referral appointments per discharge instructions. Discharge instructions discussed, patient and spouse questions answered, patient and spouse deny further needs. Port de-accessed, INT removed, hemostasis achieved. Patient denies further needs, escorted to visitor entrance and assisted into private vehicle.
== END 2018-08-24 16:10 | disposition home or self-care (01) | DRG 871 ==
LOC: COL.ER 23:09 → SURG 08-20 01:11 → ICU 08-20 01:11 → SURG 08-21 16:40
PROVIDERS: Emergency Medicine; Internal Medicine; Nurse Practitioner; Physician Assistant; ADMIT Family Medicine
DX: A41.52 Sepsis due to Pseudomonas (principal); R65.21 Severe sepsis with septic shock; I21.A1 Myocardial infarction type 2; C78.6 Secondary malignant neoplasm of retroperitoneum and peritoneum; N17.9 Acute kidney failure, unspecified; A04.72 Enterocolitis due to Clostridium difficile, not specified as recurrent; C67.7 Malignant neoplasm of urachus; N18.9 Chronic kidney disease, unspecified; E87.6 Hypokalemia; I12.9 Hypertensive chronic kidney disease with stage 1 through stage 4 chronic kidney disease, or unspecified chronic kidney disease; D64.81 Anemia due to antineoplastic chemotherapy; Z88.5 Allergy status to narcotic agent; Z88.2 Allergy status to sulfonamides; Z91.040 Latex allergy status; L89.322 Pressure ulcer of left buttock, stage 2; L89.312 Pressure ulcer of right buttock, stage 2
CPT/HCPCS: 99233-AI; 99239; J0171; J0692; J1644; J2405; J2543; J2550; J3370; J3480; J7030; J7050; J7060; J7120